=== PATIENT | female | born 1965 | race Caucasian/White ===

== ENCOUNTER 2021-12-23 09:55 | Emergency (ER) | payer OTHER ==
[~2021-12-23] VITALS: Ht 170.2 cm; Wt 54.4 kg
[2021-12-23] MEDS ORDERED: LIDOCAINE /MPF 1% VIAL 5 ML VIAL ONE (10:17)
--- NOTE | 2021-12-23 11:10 | NUR ---
pt seen by dr [email or web address] at bedside
[2021-12-23] MEDS ORDERED: LIDOCAINE 1% INJ 50 ML MDV IJ ONE (11:30)
[2021-12-23] MEDS ORDERED: MUPI22OI2 TP (13:05)
[2021-12-23] MEDS ORDERED: CEPH500C2 PO (13:05)
[2021-12-23] MEDS ORDERED: SULF1TAB48 PO (13:05)
[2021-12-23] MEDS ORDERED: KETOROLAC TROMETHAMINE 15 MG/ML VIAL ONE (13:14)
--- NOTE | 2021-12-23 13:18 | NUR ---
TORADOL IM GIVEN RIGHT DELTOID.
--- NOTE | 2021-12-23 13:19 | NUR ---
Patient discharged to home in stable condition. Written and verbal after care instructions given. Patient verbalizes understanding of instruction.
[2021-12-23 13:20] VITALS: BP 130/88
[2021-12-23] MEDS ORDERED: KETOROLAC TROMETHAMINE INJ 30 MG/ML VIAL IM ONE (13:30)
== END 2021-12-23 13:20 | disposition home or self-care (01) ==
LOC: ER 09:55
DX: L03.211 Cellulitis of face (principal); F17.200 Nicotine dependence, unspecified, uncomplicated; Z60.2 Problems related to living alone
CPT/HCPCS: 99283; 10060; 96372; J3490; A6403; A6407; J1885